=== PATIENT | female | born 1995 | race Caucasian/White ===

== ENCOUNTER 2017-06-23 13:33 | Inpatient (IN) | payer MEDICAID ==
[~2017-06-23] VITALS: Ht 162.6 cm; Wt 128.6 kg
[2017-06-23] VITALS (27 sets, daily range): BP systolic 129–159; BP diastolic 61–102; PULSE 75–115; TEMP 97.5–98.3
[2017-06-23] MEDS ORDERED: ZYRTEC 10MG10 MG PO (13:55)
[2017-06-23] MEDS ORDERED: PRENATAL (13:55)
[2017-06-23 14:24] LABS: BASO % 0.2 % (0.0-2.0); EOS # 0.1 (0.0-0.7); GRAN % 78.1 % (42.2-75.2); LYMPH % 15.7 % (20.0-51.0); MEAN CELL VOLUME 83 fl (80.0-100.0); MEAN CORPUSCULAR HGB CONC 31 g/dl (33.0-37.0); MEAN PLATELET VOLUME 11.3 fl (7.4-10.4); MONO # 0.6 (0.1-0.6); MONO % 4.5 % (1.7-9.3); PLATELET COUNT 253 K/mm3 (130-400); RED BLOOD COUNT 4.23 M/mm3 (4.10-5.30); WHITE BLOOD COUNT 12.8 K/mm3 (4.8-10.8)
[2017-06-23 14:25] LABS: HEMATOCRIT 35.1 % (37.0-47.0); HEMOGLOBIN 10.9 g/dl (12.5-16.0); MEAN CORPUSCULAR HEMOGLOBIN 26 pg (27.0-31.0)
[2017-06-24] VITALS (45 sets, daily range): BP systolic 92–149; BP diastolic 46–84; PULSE 87–148; TEMP 97.6–98.6
[2017-06-24] MEDS ORDERED: MOTRIN 800800 MG/TAB PO (07:50)
[2017-06-24] MEDS ORDERED: PERCOCET 325 MG1 TA2 PO (07:50)
[2017-06-25 01:00] VITALS: BP 130/78; PULSE 90; TEMP 98.2
[2017-06-25 07:00] VITALS: BP 122/76; PULSE 82; TEMP 98.2
[2017-06-25 19:45] VITALS: BP 128/72; PULSE 83; TEMP 98.8
[2017-06-25 23:20] VITALS: BP 122/78; PULSE 86; TEMP 97.6
[2017-06-26 05:30] VITALS: BP 135/76; PULSE 86; TEMP 98.9
[2017-06-26 07:00] VITALS: BP 133/64; PULSE 82; TEMP 98.2
== END 2017-06-26 13:15 | disposition home or self-care (01) | DRG 774 ==
LOC: LDRO → LDR 13:40 → OB 06-24 13:00
PROVIDERS: Obstetrics & Gynecology
PROC: 10E0XZZ Delivery of Products of Conception, External Approach (ICD-10-PCS; principal; 2017-06-24)
PROC: 0KQM0ZZ Repair Perineum Muscle, Open Approach (ICD-10-PCS; 2017-06-24)
DX: O99.824 Streptococcus B carrier state complicating childbirth (principal); O72.1 Other immediate postpartum hemorrhage; O69.81X0 Labor and delivery complicated by cord around neck, without compression, not applicable or unspecified; O75.89 Other specified complications of labor and delivery; Z3A.38 38 weeks gestation of pregnancy; Z37.0 Single live birth
CPT/HCPCS: J0595; J2210; J2405; J2540; J2590; J2795; J7120

== ENCOUNTER 2021-06-25 20:35 | Inpatient (IN) | payer MEDICAID ==
[~2021-06-25] VITALS: Ht 162.6 cm; Wt 113.6 kg
[2021-06-25 01:35] VITALS: BP 114/63; PULSE 86; TEMP 99.4
[~2021-06-25 20:35] MED LIST: MOTRIN 800800 MG/TAB PO; PERCOCET 325 MG1 TA2 PO; PRENATAL; ZYRTEC 10MG10 MG PO
[2021-06-25 21:39] LABS: BASO % 0.2 % (0.0-2.0); EOS # 0.1 K/mm3 (0.0-0.7); EOS % 0.7 % (0-4.0); GRAN # 9.6 K/mm3 (1.4-6.5); GRAN % 77.7 % (42.2-75.2); HEMATOCRIT 35.8 % (37.0-47.0); HEMOGLOBIN 11.6 g/dl (12.5-16.0); LYMPH % 15.9 % (20.0-51.0); MEAN CELL VOLUME 84 fl (80.0-100.0); MEAN CORPUSCULAR HEMOGLOBIN 27 pg (27.0-31.0); MEAN CORPUSCULAR HGB CONC 32 g/dl (33.0-37.0); MEAN PLATELET VOLUME 11.2 fl (7.4-10.4); MONO # 0.6 K/mm3 (0.1-0.6); PLATELET COUNT 204 K/mm3 (130-400); RED BLOOD COUNT 4.26 M/mm3 (4.10-5.30); REDCELL DISTRIBUTION WIDTH-CV 14.8 % (11.5-14.5)
--- NOTE | 2021-06-25 22:10 | NUR ---
Pt requests off monitor to go to bathroom. 2219 Dr Reyes into room, pt continues in bathroom. Dr Reyes stands in bathroom door and discusses plan of care TOLAC vs repeat C/S.
[2021-06-25 22:50] VITALS: BP 112/74; PULSE 104; TEMP 98.8
--- NOTE | 2021-06-25 22:58 | NUR ---
H.Iraida LEARNING CONSULTANT into room for epidural placement. Pt to edge of bed. EFM tracing maternal heart rate r/t maternal boddy habitus and postitoning. See anesthesai record for dosing
[2021-06-25 23:10] VITALS: BP 155/90; PULSE 115
--- NOTE | 2021-06-25 23:10 | NUR ---
To LL, 2315 To WL with peanut ball.
[2021-06-25 23:45] VITALS: BP 130/72; PULSE 109
[2021-06-26] VITALS (44 sets, daily range): BP systolic 100–146; BP diastolic 44–94; PULSE 59–130; TEMP 97.2–99.6
--- NOTE | 2021-06-26 00:10 | NUR ---
EFM tracing ?maternal heart rate. Pt sitting up leaning forward on pillow. Pt encouraged to lean back to attempt to obtain FHR tracing. Pt states "i don't want to lean back anymore. This is the position I've been sitting in for the last 3 weeks, it helps keep her down in my pelvis and against my cervix." Explained to pt that this position may not be the optimal angle for getting baby down into pelvis and that I need to be able to monitor the baby. PT leans back attempt to trace baby. PT to RL with peanut ball. When asked what her thoughts were continuing to labor or repeat C/S, pt states "I know Cliff () just wants a C/S but I want to try more position changes and a larger peanut ball to see if she will come down into the pelvis"
--- NOTE | 2021-06-26 01:30 | NUR ---
Hamilton catheter placed, immediate return to clear yellow urine. To LL with red peanut ball in place.
--- NOTE | 2021-06-26 02:30 | NUR ---
SVE with dilation changes, no effacement change, station -2 to -3 still ballots easily not well applied to cervix.
--- NOTE | 2021-06-26 02:40 | NUR ---
temp 99.6. Reported to pt that Dr Amy brown and he continues to recomend C/S. Pt request to be moved "to that [facility] postion I've read about" To .
--- NOTE | 2021-06-26 03:45 | NUR ---
Zofran 4 mg slow IV push.
--- NOTE | 2021-06-26 08:05 | NUR ---
0805: Patient reports increased rectal pressure. SVE C/+2. 0807:Dr. Reyes updated on patient.See physician notification. 0823: Dr. Reyes at bedside for delivery. Patient instructed to push with contractions. 0828: Patient begins to push with contractions. Dr. Reyes at bedside. Moves vertex well. 0831: Spontaneous vaginal delivery of viable female infant over intact perineum. NC x1, delivered through. 0833: Cord clamped x2 and cut by FOB. Nares and mouth bulb suctioned by Dr. Reyes. Care of infant assumed by EDITA Dixon. [place] to mother's chest and dried/stimulated by RN. 0835: Spontaneous and intact delivery of placenta. Pitocin at 333 ml/hr per protocol. Fundus firm, midline, and bleeding minimal. Pericare provided, ice pack applied to perineum. See physician dictation, Anesthesia record, and nurses notes.
[2021-06-27 05:00] VITALS: BP 111/65; PULSE 69; TEMP 97.4
[2021-06-27 07:15] VITALS: BP 122/62; PULSE 79; TEMP 97.6
[2021-06-27] MEDS ORDERED: MOTRIN 800800 MG/TAB PO (08:20)
--- NOTE | 2021-06-27 09:37 | NUR ---
Initial visit; Patient thanked Magistrate Judge for offering congratulations and God's blessings for the of their daughter. Magistrate Judge thanked family for choosing our hospital.
--- NOTE | 2021-06-27 14:24 | NUR ---
1250DISCHARGE INSTRUCTIONS REVIEWED WITH PATIENT. PATIENT VERBALIZED UNDERSTANDING. WILL NOTIFY THIS RN WHEN READY TO LEAVE. 1310ALL PERSONAL BELONGINGS GATHERED FROM PATIENT ROOM. PATIENT LEFT AMBULATORY AND IN NO APPARENT DISTRESS. PATIENT ACCOMPANIED BY SPOUSE AND THIS RN.
== END 2021-06-27 13:10 | disposition home or self-care (01) | DRG 807 ==
LOC: LDRO 20:35 → OB 21:18 → LDR 21:18 → OB 06-26 11:30
PROVIDERS: ADMIT Obstetrics & Gynecology
PROC: 10E0XZZ Delivery of Products of Conception, External Approach (ICD-10-PCS; principal; 2021-06-25)
DX: O99.824 Streptococcus B carrier state complicating childbirth (principal); Z37.0 Single live birth; O34.211 Maternal care for low transverse scar from previous cesarean delivery; O69.81X0 Labor and delivery complicated by cord around neck, without compression, not applicable or unspecified; Z3A.40 40 weeks gestation of pregnancy
CPT/HCPCS: J2405; J2540; J2590; J7120